=== PATIENT | male | born 1945 | race Caucasian/White ===

== ENCOUNTER 2024-05-05 12:00 | Outpatient (CLI) | payer OTHER, SELFPAY ==
[2024-05-05] MEDS: PERFLUTREN LIPID MICROSPHERES 2 ML VIAL IVP (13:30)
[2024-05-05 14:37] LABS: Free T4 Free Thyroxine* 0.91 ng/dL (0.70-1.85)
[2024-05-07 04:57] LABS: Free T3 3.7 pg/mL (2.5-4.3)
== END 2024-05-05 12:01 | disposition home or self-care (01) ==
PROVIDERS: Visit Provider Chiropractor
DX: I25.10 Atherosclerotic heart disease of native coronary artery without angina pectoris (principal); I35.1 Nonrheumatic aortic (valve) insufficiency; I34.0 Nonrheumatic mitral (valve) insufficiency; E03.9 Hypothyroidism, unspecified
CPT/HCPCS: 36415; 84439; 84443; 84481; 93306; Q9957